=== PATIENT | male | born 1995 | race African-American/Black ===

== ENCOUNTER 2024-02-05 06:46 | Emergency (ER) | payer OTHER ==
[2024-02-05 06:55] VITALS: BP 144/101; PULSE 72; RESP 20; TEMP 97.9; BMI 25.1
[2024-02-05] MEDS ORDERED: METHOCARBAMOL 750 MG TAB PO ONE (07:30)
[2024-02-05] MEDS: LIDOCAINE 4% PATCH TP ONE (07:36)
[2024-02-05] MEDS: ACETAMINOPHEN 500 MG TABLET (FP) PO ONE (07:37)
[2024-02-05] MEDS: KETOROLAC TROMETHAMINE 30 MG/1 ML VIAL IM ONE (07:37)
[2024-02-05] MEDS ORDERED: CYCLOBENZAPRINE HCL 5 MG TABLET PO SCH (10:00)
== END 2024-02-05 08:37 | disposition home or self-care (01) ==
LOC: JER 06:46 → JERFT 06:46
PROC: 3E0233Z Introduction of Anti-inflammatory into Muscle, Percutaneous Approach (ICD-10-PCS; principal; 2024-02-05)
DX: M54.2 Cervicalgia (principal)
CPT/HCPCS: 99284-25